=== PATIENT | male | born 1965 | race Caucasian/White ===

== ENCOUNTER 2017-10-19 12:37 | Day surgery (SDC) | payer OTHER ==
[2017-10-19] MEDS ORDERED: MIDAZOLAM 1 MG/ML 2 ML INJ ×5 (14:00→14:03)
[2017-10-19] MEDS ORDERED: FENTAnyl 50 MCG/ML VIAL (14:02)
== END 2017-10-19 16:20 | disposition home or self-care (01) ==
LOC: GIL 12:37
DX: Z12.11 Encounter for screening for malignant neoplasm of colon (principal); K62.1 Rectal polyp; K64.8 Other hemorrhoids
CPT/HCPCS: 45380; 88305